=== PATIENT | male | born 1945 | race Caucasian/White ===

== ENCOUNTER 2022-01-17 06:52 | Emergency (ER) | payer OTHER ==
[2022-01-17] MEDS ORDERED: Sodium Chloride 0.9% 10 ML Syringe FLUSH PRN ×2 (07:59→08:14)
[2022-01-17] MEDS ORDERED: Sodium Chloride 0.9% 50 ML IV ONE (08:14)
[2022-01-17] MEDS ORDERED: Iopamidol 612 MG/ML 100 ML Bottle IV PRN (08:14)
[2022-01-17 09:00] LABS: ESTIMATED GFR 44 mL/min (>60)
[2022-01-17] MEDS ORDERED: LORazepam 2 MG/ML SDV IVPUSH ONE (09:03)
[2022-01-17] MEDS ORDERED: Sodium Chloride 0.9% 1,000 ML IV ONE (09:06)
[2022-01-17] MEDS ORDERED: predniSONE 20 MG Tab PO ONE (10:51)
== END 2022-01-17 12:10 | disposition home or self-care (01) ==
LOC: JP.ED 06:52
DX: M51.36 Other intervertebral disc degeneration, lumbar region (principal); E11.620 Type 2 diabetes mellitus with diabetic dermatitis; R80.9 Proteinuria, unspecified; B37.2 Candidiasis of skin and nail; E83.52 Hypercalcemia; D50.9 Iron deficiency anemia, unspecified; R70.0 Elevated erythrocyte sedimentation rate; R79.89 Other specified abnormal findings of blood chemistry; R22.2 Localized swelling, mass and lump, trunk; Z88.8 Allergy status to other drugs, medicaments and biological substances; Z79.899 Other long term (current) drug therapy
CPT/HCPCS: 36415; 72148; 74177; 80053; 81001; 82306; 83690; 83735; 83970; 84100; 85025; 85651; 96360; 99284; J3490; J7030; J7512; Q9967